=== PATIENT | female | born 1955 | race Hispanic/Latino ===

== ENCOUNTER → 2020-02-08 | Outpatient (CLI) | payer OTHER ==
[~2020-02-08] MED LIST: COVID-19 VACC, MRNA(MODERNA)/PF 100 MCG/0.5 ML VIAL IM ONE
== END ==
LOC: VACCPMC 01:53
DX: Z23 Encounter for immunization (principal); Z20.828 Contact with and (suspected) exposure to other viral communicable diseases

== ENCOUNTER → 2020-03-20 | Outpatient (CLI) | payer OTHER | END | DRG 951 | LOC: VACCPMC 07:49 | DX: Z23 Encounter for immunization (principal); Z20.822 Contact with and (suspected) exposure to COVID-19 | CPT/HCPCS: 0012A; 91301 ==

== ENCOUNTER → 2020-12-07 | Outpatient (CLI) | payer OTHER | LOC: VACCPMC 07:00 | DX: Z23 Encounter for immunization (principal); Z20.822 Contact with and (suspected) exposure to COVID-19 ==

== ENCOUNTER → 2024-01-15 | Outpatient (REF) | payer MEDICARE, OTHER ==
[~2024-01-15] MED LIST changes: -COVID-19 VACC, MRNA(MODERNA)/PF 100 MCG/0.5 ML VIAL IM ONE; +LINZESS145 MCG; +LOSARTAN POTASS25 MG PO; +METOPROLOL TART50 MG PO; +XANAX0.5 MG PO; +ZYRTEC10 M3
== END ==
LOC: RAD 15:20
PROVIDERS: ATTEND Internal Medicine Gastroenterology
DX: R10.30 Lower abdominal pain, unspecified (principal); K59.09 Other constipation
CPT/HCPCS: 74018

== ENCOUNTER → 2024-01-19 | Outpatient (REF) | payer MEDICARE, OTHER | LOC: DX 13:01 | PROVIDERS: ATTEND Internal Medicine | DX: M81.0 Age-related osteoporosis without current pathological fracture (principal) | CPT/HCPCS: 77080 ==

== ENCOUNTER 2024-02-09 14:35 | Emergency (ER) | payer MEDICARE, OTHER ==
[~2024-02-09] VITALS: Ht 162.6 cm; Wt 68.9 kg
[2024-02-09 15:20] VITALS: TEMP 98.3
[2024-02-09 17:03] LABS: BASOPHILS % 0.3 % (0.0-1.0); EOSINOPHILS % 0.2 % (0.0-6.0); HEMATOCRIT 39.7 % (34.2-44.1); HEMOGLOBIN 13.6 g/dL (12.0-16.0); LYMPHOCYTES % 16.7 % (18.0-39.1); MEAN CORPUSCULAR HEMOGLOBIN 30.2 pg (28-32); MEAN CORPUSCULAR HGB CONC 34.3 g/dL (31-35); MONOCYTES # (AUTO) 0.6 (0.2-0.8); MONOCYTES % 10.9 % (4.4-11.3); NEUTROPHILS # (AUTO) 4.2 (2.1-6.9); NEUTROPHILS % 71.6 % (38.7-80.0); PLATELET COUNT 220 x10e3/uL (140-360); RED BLOOD COUNT 4.51 x10e6/uL (3.6-5.1); RED CELL DISTRIBUTION WIDTH 12.1 % (11.7-14.4); WHITE BLOOD COUNT 5.87 x10e3/uL (4.8-10.8)
[2024-02-09 17:14] LABS: ALBUMIN 3.9 g/dL (3.5-5.0); ALBUMIN/GLOBULIN RATIO 1.4 (0.8-2.0); ANION GAP 16.1 mmol/L (8-16); BILIRUBIN,TOTAL 2.1 mg/dL (0.2-1.2); CALCIUM 8.8 mg/dL (8.4-10.2); CREATININE, SERUM 0.68 mg/dL (0.57-1.11); POTASSIUM 3.1 mmol/L (3.5-5.1); TOTAL PROTEIN 6.6 g/dL (6.5-8.1)
[2024-02-09 17:19] LABS: TROPONIN I 0.007 ng/mL (0-0.300)
[2024-02-09] MEDS ORDERED: IOPAMIDOL 370 MG/ML 100 ML INFUS..BTL INJ ONE (17:28)
[2024-02-09] MEDS: SODIUM CHLORIDE 0.9% 1000ML 1,000 ML IV STA (17:36)
[2024-02-09] MEDS: ONDANSETRON HCL INJ 2MG/ML 2ML 2 MG/ML VIAL IV STA (17:36)
[2024-02-09] MEDS: Morphine 4mg INJECTION 4 MG/ML INJ IV STA (17:37)
[2024-02-09 18:13] LABS: BILIRUBIN,URINE SMALL (NEGATIVE); CLARITY,URINE SL CLOUDY (CLEAR); COLOR,URINE ORANGE (YELLOW); GLUCOSE, URINE 1+ (NEGATIVE); KETONES,URINE 2+ (NEGATIVE); LEUKOCYTE ESTERASE ,URINE LARGE (NEGATIVE); NITRITE,URINE POSITIVE (NEGATIVE); PH,URINE 5.5 (5 - 7); PROTEIN,URINE DIPSTICK 2+ (NEGATIVE); URINE UROBILINOGEN 2 mg/dL (0.2 - 1)
[2024-02-09 18:26] LABS: WBC,URINE (MAN) 0-5 /HPF (0-5)
[2024-02-09 18:27] LABS: BACTERIA,URINE MODERATE /HPF; EPITHELIAL CELLS,URINE MODERATE /LPF; TRANSITIONAL EPI CELLS,URINE MODERATE
[2024-02-09 19:39] VITALS: PULSE 74; RESP 18
[2024-02-10 00:51] VITALS: BP 128/74; PULSE 74; RESP 18; TEMP 98.3; O2SAT 98
== END 2024-02-09 22:30 | disposition other institution (70) ==
LOC: ER 16:49
DX: R30.0 Dysuria (principal); N39.0 Urinary tract infection, site not specified; R10.13 Epigastric pain; E87.1 Hypo-osmolality and hyponatremia; I10 Essential (primary) hypertension; K80.20 Calculus of gallbladder without cholecystitis without obstruction; K57.90 Diverticulosis of intestine, part unspecified, without perforation or abscess without bleeding
CPT/HCPCS: 36415; 74177; 80053; 81001; 82550; 83690; 84484; 85025; 87086; 99285; J2270; J2405; J2543; J7030; Q9967

== ENCOUNTER 2024-02-15 11:47 | Emergency (ER) | payer MEDICARE, OTHER ==
[~2024-02-15] VITALS: Ht 162.6 cm; Wt 63.3 kg
[2024-02-15] MEDS ORDERED: OXYBUTYNIN CHLOR5 MG PO (13:09)
[2024-02-15 13:19] VITALS: PULSE 80; RESP 16; TEMP 98.2; O2SAT 96
[2024-02-16] MEDS ORDERED: PROBIOTIC & AC1 EACH PO (22:26)
[2024-02-16] MEDS ORDERED: IBU600 MG PO (22:26)
[2024-02-16] MEDS ORDERED: BACTRIM 400-801 EACH PO (22:26)
== END 2024-02-15 13:19 | disposition home or self-care (01) ==
LOC: FSED 11:58
DX: N32.89 Other specified disorders of bladder (principal); I10 Essential (primary) hypertension; Z87.19 Personal history of other diseases of the digestive system
CPT/HCPCS: 81003; 99283

== ENCOUNTER 2024-02-16 21:47 | Inpatient (IN) | payer MEDICARE, OTHER ==
[~2024-02-16] VITALS: Ht 162.6 cm; Wt 63.5 kg
[~2024-02-16 21:47] MED LIST changes: +OXYBUTYNIN CHLOR5 MG PO
[2024-02-16 21:56] VITALS: PULSE 95; RESP 18; TEMP 97.5
[2024-02-16] MEDS ORDERED: ACETAMINOPHEN 325 MG TAB PO ONE (22:15)
[2024-02-16] MEDS ORDERED: CEFTRIAXONE 1 GM VIAL IM ONE (22:15)
[2024-02-16] MEDS ORDERED: BACTRIM 400-801 EACH PO (22:26)
[2024-02-16] MEDS ORDERED: PROBIOTIC & AC1 EACH PO (22:26)
[2024-02-16] MEDS ORDERED: IBU600 MG PO (22:26)
[2024-02-16] MEDS ORDERED: DIPHENHYDRAMINE HCL INJ 50 MG/ML VIAL IV PRN (23:15)
[2024-02-16] MEDS: HYDROCODONE/APAP 5MG-325MG TAB PO ONE (23:15)
[2024-02-16] MEDS: IBUPROFEN 600 MG TAB PO ONE (23:27)
[2024-02-16] MEDS: ONDANSETRON HCL 4 MG ORAL DISINTEGRATING TAB PO ONE (23:28)
[2024-02-16] MEDS: CEFTRIAXONE 1 GM VIAL IV ONE (23:30)
[2024-02-17] VITALS (13 sets, daily range): BP systolic 72–115; BP diastolic 45–77; PULSE 61–74; RESP 17–20; TEMP 97.5–98.5; O2SAT 96–100
[2024-02-17] MEDS ORDERED: LINZESS290 MCG (02:18)
[2024-02-17] MEDS ORDERED: OMEPRAZOLE40 MG PO (02:18)
[2024-02-17] MEDS ORDERED: ZOLOFT50 MG PO (02:18)
[2024-02-17] MEDS: OXYBUTYNIN CHLORIDE 5 MG TAB PO SCH (09:00)
[2024-02-17] MEDS: LINACLOTIDE 145 MCG CAPSULE PO SCH (09:10)
[2024-02-17] MEDS: PANTOPRAZOLE SOD 40 MG TABEC PO SCH (09:12)
[2024-02-17] MEDS: SERTRALINE HCL 50 MG TAB PO SCH (09:12)
[2024-02-17] MEDS: METOPROLOL TARTRATE 50 MG TAB PO SCH (09:12)
[2024-02-17] MEDS: LOSARTAN POTASSIUM 25 MG TAB PO SCH (09:12)
[2024-02-17] MEDS ORDERED: DIPHENHYDRAMINE HCL 25 MG CAP PO PRN (14:30)
[2024-02-17] MEDS ORDERED: HYDRALAZINE HCL 20 MG/ML VIAL IV PRN (14:30)
[2024-02-17] MEDS ORDERED: ACETAMINOPHEN 325 MG TAB PO PRN (14:30)
[2024-02-17] MEDS ORDERED: DEXTROSE 50% SYRINGE 50 ML IV PRN (14:30)
[2024-02-17] MEDS ORDERED: LIDOCAINE 4% PATCH TP PRN (14:30)
[2024-02-17] MEDS ORDERED: BENZONATATE 100 MG CAP PO PRN (14:30)
[2024-02-17] MEDS ORDERED: SIMETHICONE 80 MG CHEW PO PRN (14:30)
[2024-02-17] MEDS ORDERED: ALBUTEROL/IPRATROPIUM 3 ML NEB NEB PRN (14:30)
[2024-02-17] MEDS: LACTULOSE SYRUP 20 GM/30 ML UDC PO SCH (15:00)
[2024-02-17] MEDS: ENOXAPARIN SOD INJ 40 MG/0.4 ML SYR SC SCH (16:41)
[2024-02-17] MEDS: MIDODRINE HCL 5 MG TABLET PO SCH (16:41)
[2024-02-17] MEDS: SODIUM CHLORIDE 0.9% 1000ML 1,000 ML IV ONE (16:42)
[2024-02-17] MEDS ORDERED: MELATONIN 5 MG TABLET PO PRN (21:00)
[2024-02-17] MEDS: LORAZEPAM INJ 2 MG/ML VIAL IV PRN (21:31)
[2024-02-18] VITALS (7 sets, daily range): BP systolic 99–127; BP diastolic 59–88; PULSE 71–101; RESP 17–20; TEMP 97.7–98.6; O2SAT 97–100
[2024-02-18 07:11] LABS: BASOPHILS % 0.4 % (0.0-1.0); EOSINOPHILS # (AUTO) 0.1 (0.0-0.4); EOSINOPHILS % 0.9 % (0.0-6.0); HEMATOCRIT 40.6 % (34.2-44.1); HEMOGLOBIN 13.2 g/dL (12.0-16.0); LYMPHOCYTES # (AUTO) 1.2 (1.0-3.2); LYMPHOCYTES % 15.7 % (18.0-39.1); MEAN CORPUSCULAR HEMOGLOBIN 30.3 pg (28-32); MEAN CORPUSCULAR HGB CONC 32.5 g/dL (31-35); MEAN CORPUSCULAR VOLUME 93.3 fL (81-99); MONOCYTES # (AUTO) 0.8 (0.2-0.8); MONOCYTES % 10.2 % (4.4-11.3); NEUTROPHILS # (AUTO) 5.5 (2.1-6.9); NEUTROPHILS % 72.4 % (38.7-80.0); PLATELET COUNT 229 x10e3/uL (140-360); RED BLOOD COUNT 4.35 x10e6/uL (3.6-5.1); WHITE BLOOD COUNT 7.56 x10e3/uL (4.8-10.8)
[2024-02-18 07:17] LABS: MAGNESIUM 1.7 MG/DL (1.3-2.1)
[2024-02-18 07:30] LABS: ANION GAP 15.1 mmol/L (8-16); CALCIUM 9.3 mg/dL (8.4-10.2); THYROID STIMULATING HORMONE 0.791 uIU/mL (0.350-4.940)
[2024-02-18] MEDS ORDERED: PANTOPRAZOLE SOD 40 MG TABEC PO SCH (07:30)
[2024-02-18 07:31] LABS: POTASSIUM 3.1 mmol/L (3.5-5.1)
[2024-02-18 16:57] LABS: BILIRUBIN,URINE 1+ (NEGATIVE); CLARITY,URINE CLEAR (CLEAR); COLOR,URINE YELLOW (YELLOW); GLUCOSE, URINE NEGATIVE (NEGATIVE); KETONES,URINE NEGATIVE (NEGATIVE); LEUKOCYTE ESTERASE ,URINE NEGATIVE (NEGATIVE); NITRITE,URINE NEGATIVE (NEGATIVE); PH,URINE 6 (5 - 7); PROTEIN,URINE DIPSTICK 1+ (NEGATIVE); URINE UROBILINOGEN 0.2 mg/dL (0.2 - 1)
[2024-02-18 17:12] LABS: BACTERIA,URINE MANY /HPF; EPITHELIAL CELLS,URINE MODERATE /LPF; MUCUS,URINE MANY (RARE)
[2024-02-18 17:13] LABS: TRANSITIONAL EPI CELLS,URINE FEW
[2024-02-19] VITALS (10 sets, daily range): BP systolic 118–134; BP diastolic 72–84; PULSE 65–106; RESP 17–20; TEMP 97.9–98.3; O2SAT 98–100
[2024-02-19] MEDS: MIDODRINE HCL 5 MG TABLET PO SCH (14:46)
[2024-02-19] MEDS: HYDROXYZINE HCL 25 MG TAB PO PRN (16:56)
[2024-02-20] VITALS (10 sets, daily range): BP systolic 111–135; BP diastolic 73–85; PULSE 73–106; RESP 18–19; TEMP 97.8–98.4; O2SAT 96–100
[2024-02-20 06:12] LABS: BASOPHILS % 0.2 % (0.0-1.0); EOSINOPHILS # (AUTO) 0.1 (0.0-0.4); HEMATOCRIT 40.6 % (34.2-44.1); HEMOGLOBIN 13.9 g/dL (12.0-16.0); LYMPHOCYTES # (AUTO) 1.2 (1.0-3.2); LYMPHOCYTES % 23.8 % (18.0-39.1); MEAN CORPUSCULAR HEMOGLOBIN 30.5 pg (28-32); MEAN CORPUSCULAR HGB CONC 34.2 g/dL (31-35); MEAN CORPUSCULAR VOLUME 89.2 fL (81-99); MONOCYTES # (AUTO) 0.5 (0.2-0.8); MONOCYTES % 10.4 % (4.4-11.3); NEUTROPHILS # (AUTO) 3.1 (2.1-6.9); NEUTROPHILS % 64.2 % (38.7-80.0); PLATELET COUNT 247 x10e3/uL (140-360); RED BLOOD COUNT 4.55 x10e6/uL (3.6-5.1); RED CELL DISTRIBUTION WIDTH 13.3 % (11.7-14.4); WHITE BLOOD COUNT 4.83 x10e3/uL (4.8-10.8)
[2024-02-20] MEDS ORDERED: FENTANYL CITRATE/PF 100MCG/2 ML INJ ONE (06:44)
[2024-02-20] MEDS ORDERED: PROPOFOL IV EMULSION 10 MG/ML 20 ML VIAL ONE (06:44)
[2024-02-20] MEDS ORDERED: LIDOCAINE HCL 2% LOCAL INJ 5 ML SDV VIAL INJ ONE (06:44)
[2024-02-20 06:45] LABS: ANION GAP 15.3 mmol/L (8-16); CALCIUM 9.7 mg/dL (8.4-10.2); CREATININE, SERUM 0.77 mg/dL (0.57-1.11)
[2024-02-20 06:48] LABS: POTASSIUM 3.3 mmol/L (3.5-5.1)
[2024-02-20] MEDS ORDERED: MIDAZOLAM HCL 2 MG/2 ML VIAL ONE (06:57)
[2024-02-20] MEDS ORDERED: CEFTRIAXONE 1 GM VIAL ONE (07:01)
[2024-02-20] MEDS ORDERED: DEXAMETHASONE SOD PHOS INJ 4 MG/ML SDV ONE (07:09)
[2024-02-20] MEDS ORDERED: ONDANSETRON HCL INJ 2MG/ML 2ML 2 MG/ML VIAL ONE (07:09)
[2024-02-20] MEDS: PHENAZOPYRIDINE HCL 100 MG TAB PO PRN (09:01)
[2024-02-20] MEDS: POTASSIUM CHLORIDE 20 MEQ TAB CR PO PRN (09:49)
[2024-02-20] MEDS: Morphine 4mg INJECTION 4 MG/ML INJ IV PRN (09:51)
[2024-02-20] MEDS ORDERED: SEVOFLURANE INHAL SOLN 250 ML PEN BTL ONE (13:13)
[2024-02-20] MEDS: ONDANSETRON HCL INJ 2MG/ML 2ML 2 MG/ML VIAL IV PRN (23:45)
[2024-02-21] VITALS (8 sets, daily range): BP systolic 101–121; BP diastolic 67–85; PULSE 69–99; RESP 18–20; TEMP 97.7–98.3; O2SAT 97–99
[2024-02-21] MEDS ORDERED: SODIUM CHLORIDE 0.9% 500ML 500 ML ONE (08:07)
[2024-02-21] MEDS: DOCUSATE SODIUM 100 MG CAP PO PRN (11:29)
[2024-02-21] MEDS: SOLIFENACIN SUCCINATE 5 MG TAB PO SCH (11:40)
[2024-02-21] MEDS: CALCIUM CARBONATE 500 MG CHEWABLE TABS PO PRN (17:31)
[2024-02-21] MEDS: PANTOPRAZOLE SOD 40 MG TABEC PO SCH (18:39)
[2024-02-21] MEDS: SUCRALFATE 1 GM/10 ML SUSP PO SCH (20:03)
[2024-02-21] MEDS: SOD PHOSPHATE/SOD BIPHOSPHATE ENEMA 132 ML BTL PR ONE (20:03)
[2024-02-22 00:58] VITALS: BP_SYST 109; BP_SYST 125; BP_DIAS 59; BP_DIAS 83; PULSE 75; PULSE 76; RESP 17; RESP 18; TEMP 97.3; TEMP 98.3; O2SAT 98; O2SAT 99
[2024-02-22 04:32] VITALS: BP 117/80; PULSE 91; RESP 18; TEMP 97.7; O2SAT 99
[2024-02-22 06:50] LABS: BASOPHILS % 0.5 % (0.0-1.0); HEMOGLOBIN 12.9 g/dL (12.0-16.0); LYMPHOCYTES % 14.5 % (18.0-39.1); MEAN CORPUSCULAR HEMOGLOBIN 30.4 pg (28-32); MEAN CORPUSCULAR HGB CONC 31.5 g/dL (31-35); MEAN CORPUSCULAR VOLUME 96.5 fL (81-99); MONOCYTES % 9.7 % (4.4-11.3); NEUTROPHILS # (AUTO) 4.4 (2.1-6.9); PLATELET COUNT 192 x10e3/uL (140-360); RED BLOOD COUNT 4.25 x10e6/uL (3.6-5.1); RED CELL DISTRIBUTION WIDTH 13.2 % (11.7-14.4); WHITE BLOOD COUNT 5.98 x10e3/uL (4.8-10.8)
[2024-02-22 06:51] LABS: EOSINOPHILS # (AUTO) 0.1 (0.0-0.4); LYMPHOCYTES # (AUTO) 0.9 (1.0-3.2); MONOCYTES # (AUTO) 0.6 (0.2-0.8)
[2024-02-22 07:20] LABS: CALCIUM 10.1 mg/dL (8.4-10.2); CREATININE, SERUM 0.96 mg/dL (0.57-1.11)
[2024-02-22 08:36] VITALS: BP 144/94; PULSE 101; RESP 20; TEMP 98; O2SAT 96
[2024-02-22 08:48] VITALS: BP 144/94; PULSE 101; RESP 20; TEMP 98; O2SAT 96
[2024-02-22] MEDS ORDERED: ESTRADIOL 42.5 GM CR VG SCH (12:00)
[2024-02-22 13:03] VITALS: BP 127/86; PULSE 81; RESP 18; TEMP 98.4; O2SAT 99
== END 2024-02-22 14:24 | disposition home or self-care (01) | DRG 690 ==
LOC: FSED 21:56 → ERHOLD 23:22 → MED/SURG3 02-17 01:07 → OBSVTOIN 02-19 09:19
PROVIDERS: ADMIT Internal Medicine; ATTEND Internal Medicine
PROC: 0T9B70Z Drainage of Bladder with Drainage Device, Via Natural or Artificial Opening (ICD-10-PCS; 2024-02-20)
PROC: BT151ZZ Fluoroscopy of Urethra using Low Osmolar Contrast (ICD-10-PCS; 2024-02-20)
PROC: 0TJB8ZZ Inspection of Bladder, Via Natural or Artificial Opening Endoscopic (ICD-10-PCS; principal; 2024-02-20 06:57)
DX: N39.0 Urinary tract infection, site not specified (principal); I10 Essential (primary) hypertension; R33.9 Retention of urine, unspecified; R31.29 Other microscopic hematuria; R35.0 Frequency of micturition; N32.89 Other specified disorders of bladder; K59.09 Other constipation; K80.20 Calculus of gallbladder without cholecystitis without obstruction; N32.81 Overactive bladder; N95.2 Postmenopausal atrophic vaginitis
CPT/HCPCS: 36415; 74176; 74420; 80048; 80053; 81001; 81003; 83735; 84443; 85025; 87086; 94799; 99284; G0378; J0696; J1100; J1650; J2003; J2060; J2250; J2270; J2405; J3410; J7030; J7040; Q0162

== ENCOUNTER → 2024-09-16 | Outpatient (REF) | payer MEDICARE, OTHER ==
[~2024-09-16] MED LIST changes: +BACTRIM 400-801 EACH PO; +IBU600 MG PO; +LINZESS290 MCG; +OMEPRAZOLE40 MG PO; +PROBIOTIC & AC1 EACH PO; +ZOLOFT50 MG PO
== END ==
LOC: MAMMO 12:39
PROVIDERS: ATTEND Internal Medicine
DX: Z12.31 Encounter for screening mammogram for malignant neoplasm of breast (principal)
CPT/HCPCS: 77067

== ENCOUNTER → 2024-10-06 | Day surgery (SDC) | payer MEDICARE, OTHER ==
[2024-10-01 13:57] LABS: BASOPHILS % 0.5 % (0.0-1.0); EOSINOPHILS % 1.5 % (0.0-6.0); LYMPHOCYTES % 37.7 % (18.0-39.1); MONOCYTES % 8.3 % (4.4-11.3); NEUTROPHILS % 51.8 % (38.7-80.0); RED CELL DISTRIBUTION WIDTH 12.9 % (11.7-14.4)
[~2024-10-06] MED LIST changes: +KETAMINE HCL INJ 50 MG/ML 10 ML VIAL ONE; +LIDOCAINE HCL 2% LOCAL INJ 5 ML SDV VIAL INJ ONE; +METOCLOPRAMIDE HCL 10 MG/2ML VIAL ONE; +PRILOSEC2.5 MG; +PROPOFOL IV EMULSION 10 MG/ML 20 ML VIAL ONE; +WELLBUTRIN XL150 MG PO
[2024-10-06] MEDS: LACTATED RINGER'S 1,000 ML ONE (05:54)
[2024-10-06 07:34] VITALS: TEMP 97.5
[2024-10-06 08:00] VITALS: BP 123/83; PULSE 85; RESP 16; O2SAT 100
[2024-10-09 21:09] LABS: ENDOMYSIAL ANTIBODIES, IGA Negative (Negative)
[2024-10-09 23:04] LABS: TISSUE TRANSGLUTAMINASE IGA AB <2 U/mL (0-3)
== END | disposition home or self-care (01) ==
LOC: OR 05:27
PROVIDERS: ATTEND Internal Medicine Gastroenterology
DX: K29.50 Unspecified chronic gastritis without bleeding (principal); K31.7 Polyp of stomach and duodenum; K31.A11 Gastric intestinal metaplasia without dysplasia, involving the antrum; K20.90 Esophagitis, unspecified without bleeding; K44.9 Diaphragmatic hernia without obstruction or gangrene; K57.90 Diverticulosis of intestine, part unspecified, without perforation or abscess without bleeding; I10 Essential (primary) hypertension; Z71.89 Other specified counseling; N39.0 Urinary tract infection, site not specified; R09.82 Postnasal drip; J30.2 Other seasonal allergic rhinitis; F41.9 Anxiety disorder, unspecified; Z01.810 Encounter for preprocedural cardiovascular examination; Z01.812 Encounter for preprocedural laboratory examination; Z79.899 Other long term (current) drug therapy
CPT/HCPCS: 36415; 43239; 43251; 82784; 83516; 85025; 86256; 88305; 88342; 93005; J2003; J2470; J2704; J2765; J7121